=== PATIENT | female | born 1975 | race Caucasian/White ===

== ENCOUNTER 2016-12-27 21:17 | Observation (INO) | payer OTHER ==
[~2016-12-27] VITALS: Ht 160 cm; Wt 59.2 kg
[~2016-12-27 21:17] MED LIST: PREFERA-OB1 TABLET PO; PROZAC20 MG PO; Percocet 5/325,Endoc PO
[2016-12-27 21:40] LABS: BASOPHIL COUNT 0.1 K/uL (0-0.1); EOSINOPHIL (%) 0.8 % (0-5); EOSINOPHIL COUNT 0.1 K/uL (0-0.3); IMMATURE GRANULOCYTE (%) 0.3 % (0.0-0.7); INSTRUMENT ABS NEUTROPHIL CT 6.8 K/uL; LYMPHOCYTE COUNT 1.4 K/uL (1.0-2.8); MCH 30.2 PG (29.0-34.0); MCHC 33.4 G/DL (30.0-36.0); MCV 90.5 FL (83-99); MEAN PLAT.VOLUME 8.8 uM^3 (9.5-12.4); MONOCYTE (%) 6.4 % (3-12); MONOCYTE COUNT 0.6 K/uL (0-0.8); NEUTROPHIL (%) 76.1 % (45-76); NEUTROPHIL COUNT 6.8 K/uL (1.8-6.4); PLATELET COUNT 280 K/uL (156-360); RBC DIS.WIDTH-CV 12.7 % (11.8-14.6); RBC DIS.WIDTH-SD 42.1 % (39-53); RED BLOOD COUNT 4.53 M/uL (3.80-5.20)
[2016-12-27 21:54] LABS: CHLORIDE 105 mEq/L (99-109)
[2016-12-27 21:55] LABS: POTASSIUM 4.1 mEq/L (3.7-5.4); SODIUM 136 mEq/L (136-147)
[2016-12-27 21:56] LABS: GLUCOSE 83 mg/dL (70-99)
[2016-12-27 21:58] LABS: ANION GAP 5 MEQ/L (2-14)
[2016-12-27 21:59] LABS: SERUM ETHYL ALCOHOL < 10 mg/dL
[2016-12-27 22:00] LABS: GFR ESTIMATE (CALCULATED) > 59 mL/min/
[2016-12-27 22:02] LABS: UREA NITROGEN (BUN) 9 mg/dL (9-23)
[2016-12-27 22:03] LABS: SALICYLATE < 5.0 MG/DL (15-30)
[2016-12-27 22:09] LABS: QUANTITATIVE HCG < 4.0 MIU/ML
[2016-12-27 22:33] LABS: BICARBONATE 26.6 mEq/L (22-26); CARBOXY HGB 2.6 % (0-5); COMMENTS - BLOOD GASES A+C+; DEVICE RA; METHEMOGLOBIN 1.2 % (0-1.5); PCO2 45 mm Hg (35-45); PO2 81 mm Hg (80-100); SITE LR; pH 7.38 (7.35-7.45)
[2016-12-27 22:34] LABS: TOTAL RESP RATE 16 resp/min
[2016-12-28 02:52] VITALS: BP 83/56
[2016-12-28 03:58] LABS: ADD MIUA? YES; BILIRUBIN NEGATIVE; BLOOD NEGATIVE; COLOR YELLOW ((YELLOW)); GLUCOSE (STRIP) NEGATIVE; KETONES NEGATIVE; LEUKOCYTES NEGATIVE; NITRITE NEGATIVE; PROTEIN (STRIP) NEGATIVE; SPECIFIC GRAVITY 1.012 (1.000-1.030); UROBILINOGEN 0.2 MG/DL (0.2-1.0)
[2016-12-28 04:19] LABS: BACTERIA 2+ /HPF; CASTS NONE SEEN /LPF; CRYSTALS NONE SEEN; EPITHELIAL CELLS 3+ /HPF; MUCUS RARE /LPF; RED BLOOD CELLS 0-5 /HPF (0-5); UCUL ADDED? NO; WHITE BLOOD CELLS 0-5 /HPF (0-5)
[2016-12-28 04:22] LABS: AMPHETAMINES QUANT VALUE 0 NG/ML; BARBITUATES QUANT VALUE 0 NG/ML; BENZODIAZEPINES, URINE SCREEN POSITIVE (200 ng/mL); MARIJUANA QUANT VALUE 0 NG/ML; OPIATES QUANTITATIVE VALUE 0 NG/ML; PHENCYCLIDINE QUANT VALUE 0 NG/ML
[2016-12-28 08:22] VITALS: BP 91/59
[2016-12-28 12:17] VITALS: BP 95/66
[2016-12-28 15:39] VITALS: BP 92/52
[2016-12-28 20:00] VITALS: BP 96/54
[2016-12-28 23:36] VITALS: BP 102/57
[2016-12-29 02:16] LABS: ADD MIUA? YES; BILIRUBIN NEGATIVE; BLOOD NEGATIVE; COLOR YELLOW ((YELLOW)); GLUCOSE (STRIP) NEGATIVE; KETONES NEGATIVE; LEUKOCYTES TRACE; NITRITE NEGATIVE; PROTEIN (STRIP) NEGATIVE; SPECIFIC GRAVITY 1.013 (1.000-1.030); UROBILINOGEN 0.2 MG/DL (0.2-1.0)
[2016-12-29 02:34] LABS: BACTERIA 1+ /HPF; EPITHELIAL CELLS 2+ /HPF; MUCUS 2+ /LPF; RED BLOOD CELLS 0-5 /HPF (0-5); UCUL ADDED? NO; WHITE BLOOD CELLS 0-5 /HPF (0-5)
[2016-12-29 05:00] VITALS: BP 104/51
[2016-12-29 05:49] LABS: HEMATOCRIT 37.3 % (36.0-46.0); MCH 30.1 PG (29.0-34.0); MCHC 33.2 G/DL (30.0-36.0); MCV 90.5 FL (83-99); MEAN PLAT.VOLUME 8.9 uM^3 (9.5-12.4); PLATELET COUNT 230 K/uL (156-360); RBC DIS.WIDTH-CV 12.4 % (11.8-14.6); RBC DIS.WIDTH-SD 41.3 % (39-53); RED BLOOD COUNT 4.12 M/uL (3.80-5.20); WHITE BLOOD COUNT 8.8 K/uL (4.1-10.2)
[2016-12-29 06:27] LABS: ANION GAP 8 MEQ/L (2-14); CHLORIDE 109 MEQ/L (99-109); GFR ESTIMATE (CALCULATED) > 59 mL/min/; GLUCOSE 80 mg/dL (70-99); SAMPLE HEMOLYSIS CHECK 0; SAMPLE ICTERIC CHECK 0; SAMPLE LIPEMIA CHECK 0; SODIUM 138 MEQ/L (136-147); UREA NITROGEN (BUN) 8 mg/dL (9-23)
[2016-12-29 08:20] VITALS: BP 91/55
[2016-12-29 11:02] VITALS: BP 101/59
[2016-12-29 15:13] VITALS: BP 103/63
[2016-12-29 16:19] LABS: COCAINE NEGATIVE (150 ng/mL); METHAMPHETAMINE NEGATIVE (500 ng/mL); OPIATES (MORPHINE) NEGATIVE (100 ng/mL); PHENCYCLIDINE NEGATIVE (25 ng/mL); THC CANNABINOIDS NEGATIVE (50 ng/mL)
[2016-12-29 16:20] LABS: ADD MEDTOX COMMENT Y; AMPHETAMINE NEGATIVE (500 ng/mL); BARBITURATES NEGATIVE (200 ng/mL); BENZODIAZEPINES PRESUMPTIVE POSITIVE (150 ng/mL); INTERNAL CONTROLS VALID? YES; METHADONE NEGATIVE (200 ng/mL); OXYCODONE NEGATIVE (100 ng/mL); PROPOXYPHENE NEGATIVE (300 ng/mL); TRICYCLIC ANTIDEPRESSANTS PRESUMPTIVE POSITIVE (300 ng/mL)
[2016-12-29 16:53] LABS: BENZODIAZEPINES QUANT VALUE 0 NG/ML; BENZODIAZEPINES, URINE SCREEN Negative (200 ng/mL)
[2016-12-29 20:42] VITALS: BP 111/63
[2016-12-30 00:12] VITALS: BP 104/61
[2016-12-30 09:15] VITALS: BP 106/62
[2016-12-30 12:15] VITALS: BP 103/63
[2016-12-30 16:00] VITALS: BP 98/55
== END 2016-12-30 19:08 ==
LOC: EME → EDBD 21:17 → EME 21:17 → EDOF 12-28 00:50 → 5WEST 12-28 00:50 → EDOF 12-28 00:50 → 5WEST 12-28 02:41
PROVIDERS: Emergency Medicine; Hospitalist; Nurse Practitioner Family
DX: T42.4X2A Poisoning by benzodiazepines, intentional self-harm, initial encounter (principal); T42.6X2A Poisoning by other antiepileptic and sedative-hypnotic drugs, intentional self-harm, initial encounter; F32.9 Major depressive disorder, single episode, unspecified
CPT/HCPCS: 36600; 70450; 71010; 80048; 80306 90; 81003; 82803; 84702; 84999; 85025; 85027; 90837; 93005; 99281; 99285; G0378; G0480; J1650; J2310; J7030; S0028